=== PATIENT | male | born 1955 | race Caucasian/White ===

== ENCOUNTER 2016-08-11 07:21 | Day surgery (SDC) | payer BC ==
--- NOTE | ~2016-08-11 | EGD ---
EGD REPORT [facility] [address] [place] [address] NAME: PAULO SAINZ : 55 STATUS : REG [facility]#: [id number] AGE: 61 ADM/REG DATE : 08/11/16 MR#: [id number] REPORT SERV DATE: 08/11/16 DICTATED BY: PO SCHAEFFER DATE: 08/11/16 REPORT STATUS : Draft [facility]: [facility] DATE: 08/11/16 [facility] Patient Name: Paulo Sainz Date of : 1955 Attending MD: MIGUELITO SCHAEFFER MD Procedure Date No Time: 08/11/2016 Procedure: Colonoscopy Indications: High risk colon cancer surveillance: Personal history of colonic polyps, Last colonoscopy: March 2013 Referring MD: SANTOSH CRESPO Medicines: See the Anesthesia note for documentation of the administered medications Complications: No immediate complications. Estimated blood loss: None. Procedure: Pre-Anesthesia Assessment: - ASA Grade Assessment: III - A patient with severe systemic disease. - Prior to the procedure, a History and Physical was performed, and patient medications and allergies were reviewed. The patient's tolerance of previous anesthesia was also reviewed. The risks and benefits of the procedure and the sedation options and risks were discussed with the patient. All questions were answered, and informed consent was obtained. Prior Anticoagulants: The patient has taken aspirin and antiplatelet medication, last doses were 1 day prior to procedure. After reviewing the risks and benefits, the patient was deemed in satisfactory condition to undergo the procedure. After I obtained informed consent, the scope was passed under direct vision. Throughout the procedure, the patient's blood pressure, pulse, and oxygen saturations were monitored continuously. The PCF [id number] was introduced through the anus with the intention of advancing to the cecum. The scope was advanced to the splenic flexure before the procedure was aborted. Medications were given. The rectum was photographed. The colonoscopy was performed with difficulty due to poor bowel prep with stool present. The patient tolerated the procedure well. The quality of the bowel preparation was inadequate. Findings: The perianal and digital rectal examinations were normal. Due to a poor prep the exam had to be terminated at the spleenic flexure EGD REPORT [address] [place]. [address] NAME: PAULO SAINZ : 55 STATUS : REG [facility] [place] PAT#: [id number] AGE: 61 ADM/REG DATE : 08/11/16 MR#: [id number] REPORT SERV DATE: 08/11/16 DICTATED BY: PO SCHAEFFER DATE: 08/11/16 REPORT STATUS : Draft TRANSCRIBED BY: [employer] DATE: 08/11/16 Impression: - Preparation of the colon was inadequate. - Due to a poor prep the exam had to be terminated at the spleenic flexure Recommendation: - Patient has a contact number available for emergencies. The signs and symptoms of potential delayed complications were discussed with the patient. Return to normal activities tomorrow. Written discharge instructions were provided to the patient. - Regular diet. - Discharge patient to home. - Repeat colonoscopy soon soon as this exam was not complete due to a very poor prep. Procedure Code(s): --- Professional --- 58208, 53, Colonoscopy, flexible, proximal to splenic flexure; diagnostic, with or without collection of specimen(s) by brushing or washing, with or without colon decompression (separate procedure) Diagnosis Code(s): --- Professional --- Z86.010, Personal history of colonic polyps CPT copyright 2013 [employer]. All rights reserved. The codes documented in this report are preliminary and upon sound equipment mechanic review may be revised to meet current compliance requirements. MIGUELITO SCHAEFFER MD 08/11/2016 9:04 AM This report has been signed electronically. Number of Addenda: 0 Note Initiated On: 08/11/2016 8:49 AM Scope Withdrawal Time 0 hours 0 minutes 0 seconds
[~2016-08-11 07:21] MED LIST: ASAB PO; BRILINTA90 MG PO; CO Q-10100 MG PO; CYMBALTA60 PO; FISH OIL1200 MG PO; LIPITOR40 PO; LOP25 PO; MULTIPLE VIT PO; NEUR600 PO; PRIN10 PO; ULTRAM50 PO; VITAMIN D1000 UNI1 PO; VITC500 PO
== END 2016-08-11 23:59 | disposition home or self-care (01) ==
LOC: DMU 07:21
PROVIDERS: Internal Medicine Gastroenterology
PROC: 0DJD8ZZ Inspection of Lower Intestinal Tract, Via Natural or Artificial Opening Endoscopic (ICD-10-PCS; principal; 2016-08-11 08:30)
DX: Z12.11 Encounter for screening for malignant neoplasm of colon (principal); I10 Essential (primary) hypertension; I25.10 Atherosclerotic heart disease of native coronary artery without angina pectoris; M06.9 Rheumatoid arthritis, unspecified; F32.9 Major depressive disorder, single episode, unspecified; Z95.5 Presence of coronary angioplasty implant and graft; Z98.890 Other specified postprocedural states; Z98.1 Arthrodesis status; Z86.010 Personal history of colon polyps; Z79.899 Other long term (current) drug therapy; Z79.891 Long term (current) use of opiate analgesic; Z79.82 Long term (current) use of aspirin